=== PATIENT | female | born 1985 | race Caucasian/White ===

== ENCOUNTER 2021-03-25 20:54 | Emergency (ER) | payer MEDICAID ==
[~2021-03-25] VITALS: Ht 134.6 cm; Wt 63.5 kg
[2021-03-25 21:08] VITALS: BP 155/91
--- NOTE | 2021-03-25 21:08 | NUR ---
TO BED AMBULATORY
--- NOTE | 2021-03-25 21:20 | NUR ---
35 Y/O FEMALE C/O BACK PAIN FOR 3 DAYS. DENIES ANY TRAUMA OR INJURY. PT STATES 10/10 PAIN ON NECK AND R SHOULDER. PAIN UPON PALPATION. MEDHX: DENIES NKA
[2021-03-25] MEDS ORDERED: IBUPROFEN 600 MG TAB PO ONE (21:30)
--- NOTE | 2021-03-25 21:30 | NUR ---
Dr. Bolden examining patient.
[2021-03-25] MEDS ORDERED: IBUP-2213 PO ×2 (21:31→21:37)
[2021-03-25 21:49] VITALS: BP 155/91
== END 2021-03-25 21:49 | disposition home or self-care (01) ==
LOC: MED 20:54
DX: M54.6 Pain in thoracic spine (principal); X50.0XXA Overexertion from strenuous movement or load, initial encounter; Y93.89 Activity, other specified; Y92.89 Other specified places as the place of occurrence of the external cause; Y99.8 Other external cause status
CPT/HCPCS: 81025; 99282